=== PATIENT | male | born 1960 | race Caucasian/White ===

== ENCOUNTER 2017-05-01 20:38 | Emergency (ER) | payer OTHER ==
[2012-10-18 06:19] VITALS: BMI 44.4
[~2017-05-01 20:38] MED LIST: NORCO 10/325 TA1 TA1 PO; PHENERGAN25 M1 PO; PRINIVIL20 MG PO; TRIPLE ANTIB28.35 GM TP
[2017-05-01 21:16] LABS: EOSINOPHILS 3.7 % (0-7); HEMATOCRIT 42.3 % (42.0-54.0); HEMOGLOBIN 14.1 g/dL (13.5-17.5); IMMATURE GRANULOCYTES 0.2 % (0-5); LYMPHOCYTES 37.3 % (15-50); MCH 30.7 pg (26.0-34.0); MCHC 33.3 g/dL (31.0-37.0); MEAN PLATELET VOLUME 12.1 fL (7.4-10.4); MONOCYTES 10.6 % (2-11); NEUTROPHILS 47.2 % (40-80); PLATELET COUNT 187 10x3/uL (130-400); RDW 13.9 % (11.5-14.5); WBC 5.7 10x3/uL (4.8-10.8)
[2017-05-01 21:48] LABS: APTT 27.7 SECONDS (22.8-39.4); INR 1.05 (0.85-1.17); PROTIME 13.3 SECONDS (11.6-15.0)
== END 2017-05-01 23:20 | disposition home or self-care (01) ==
LOC: D.ER 20:38
PROVIDERS: Family Medicine; Physician Assistant
DX: R04.0 Epistaxis (principal); I10 Essential (primary) hypertension